=== PATIENT | female | born 1960 | race Caucasian/White ===

== ENCOUNTER 2024-02-08 21:16 | Inpatient (IN) | payer SELFPAY ==
[2024-02-08] MEDS ORDERED: Lorazepam 1 MG TAB ONE (22:00)
[2024-02-08] MEDS ORDERED: Morphine 2 MG/ML VIAL ONE (22:14)
[2024-02-08] MEDS ORDERED: Ondansetron PF 4 MG/2 ML Vial ONE (22:14)
[2024-02-08 22:29] LABS: #Basophils 0.11 10x3/uL (0.0-0.2); %Basophils 0.6 % (0.0-1.0); %Eosinophils 0.8 % (0.0-10.0); %Lymphocytes 16.9 % (21.0-51.0); %Monocytes 5.8 % (0.0-10.0); %Neutrophils 75.4 % (42.0-75.0); Hematocrit 43.3 % (36.0-47.0); Hemoglobin 14.9 g/dL (12.0-16.0); Mean Corpuscular HGB CONC 34.4 g/dL (32.0-36.0); Mean Corpuscular Hemoglobin 32.8 pg (27.0-31.0); Mean Corpuscular Volume 95.4 fL (78.0-98.0); Mean Platelet Volume 10.8 fL (7.4-10.4); Platelet Count 299 10x3/uL (130-400); RBC Distribution Width 12.4 % (11.5-14.5); Red Blood Cell (RBC) Count 4.54 mill/uL (4.20-5.40)
[2024-02-08 22:46] LABS: ALT (SGPT) 17 U/L (8-55); AST (SGOT) 21 U/L (5-34); Albumin 4.2 g/dL (3.4-4.8); Alkaline Phosphatase 122 U/L (40-110); Anion Gap 14 mmol/L (10-20); BUN (Urea Nitrogen) 8 mg/dL (9.8-20.1); Bilirubin, Total 0.5 mg/dL (0.2-1.2); Calc. Creatinine Clearance 0 mL/min (70-130); Calcium 9.3 mg/dL (7.8-10.44); Carbon Dioxide 25 mmol/L (23-31); Chloride 104 mmol/L (98-107); Estimated GFR 93; Globulin 3.3 g/dL (2.4-3.5); Glucose 116 mg/dL (80-115); Potassium 3.8 mmol/L (3.5-5.1); Protein, Total 7.5 g/dL (5.8-8.1); Sodium 139 mmol/L (136-145)
[2024-02-08] MEDS ORDERED: Bacitracin Zinc Ointment 30 gm TUBE ONE (22:48)
[2024-02-08] MEDS ORDERED: Bupivacaine PF 0.5% 30 ML VIAL ONE (22:49)
[2024-02-08] MEDS ORDERED: HYDROcodone/Acetaminophen 10/325 mg Tablet PO PRN (23:51)
[2024-02-08] MEDS ORDERED: Milk Of Magnesia 30 ML UDCUP PO PRN (23:51)
[2024-02-08] MEDS ORDERED: Ondansetron PF 4 MG/2 ML Vial SLOW IVP PRN (23:51)
[2024-02-08] MEDS ORDERED: Promethazine HCl 25 MG/ML VIAL IM PRN (23:51)
[2024-02-08] MEDS ORDERED: fentaNYL 50 mcg/mL 1 mL Vial SLOW IVP PRN (23:51)
[2024-02-08] MEDS ORDERED: Acetaminophen 325 MG TAB PO PRN (23:51)
[2024-02-08] MEDS ORDERED: traMADol HCl 50 MG TAB PO PRN (23:51)
[2024-02-09 00:34] LABS: Anion Gap 14 mmol/L (10-20); BUN (Urea Nitrogen) 6 mg/dL (9.8-20.1); Calc. Creatinine Clearance 0 mL/min (70-130); Calcium 8.6 mg/dL (7.8-10.44); Carbon Dioxide 19 mmol/L (23-31); Chloride 107 mmol/L (98-107); Estimated GFR 98; Glucose 99 mg/dL (80-115); Potassium 4.1 mmol/L (3.5-5.1); Sodium 136 mmol/L (136-145)
[2024-02-09] MEDS ORDERED: fentaNYL PF 100 MCG/2 ML SYRINGE ONE ×2 (01:03→03:14)
[2024-02-09] MEDS ORDERED: PROPOFOL 20 ML ONE (01:03)
[2024-02-09] MEDS ORDERED: Lidocaine 1% PF 5 ML VIAL ONE (01:03)
[2024-02-09] MEDS ORDERED: Midazolam HCl 2 mg/2 ml Vial ONE (01:03)
[2024-02-09] MEDS ORDERED: Ondansetron PF 4 MG/2 ML Vial ONE (01:03)
[2024-02-09] MEDS ORDERED: PHENYLEPHRINE-NS 100 MCG/ML 10 ML SYRINGE ONE (01:48)
[2024-02-09] MEDS ORDERED: Meperidine HCl/PF 25 MG (1 mL) VIAL IM PRN (03:24)
[2024-02-09 04:15] VITALS: BMI 25.4
[2024-02-09] MEDS: TETANUS, DIPHTHERIA TOX,ADULT (TDVAX) 0.5 ML VIAL IM ONE (04:16)
[2024-02-09] MEDS: Ketorolac Tromethamine 30 MG (1 mL) VIAL IVP SCH (05:34)
[2024-02-09] MEDS: cefTRIAXone\\ROCEPHIN 2 GM in Sodium Chloride 0.9% 100 ML IVPB SCH ×2 (05:40→06:28)
[2024-02-09] MEDS: HYDROcodone/Acetaminophen 5/325 mg Tablet PO PRN (05:45)
[2024-02-09] MEDS: Vancomycin (BATCH) 1.25 GM in Premix 1 BAG IVPB SCH (08:34)
[2024-02-09] MEDS: Aspirin 81 mg Enteric Coated Tablet PO SCH (08:34)
[2024-02-09] MEDS: Lorazepam 2 MG/ML VIAL SLOW IVP SCH (08:38)
[2024-02-09] MEDS ORDERED: VANCOMYCIN 1.25 GM/250 ML BAG IVPB SCH (09:00)
[2024-02-09] MEDS ORDERED: TETANUS AND DIPHTHERIA TOX/PF 0.5 ML DISP.SYRIN IM SCH (09:00)
[2024-02-09] MEDS: Nicotine 21 MG PATCH TD SCH (13:58)
[2024-02-09] MEDS ORDERED: Nicotine 21 MG PATCH TD SCH (21:00)
[2024-02-10 06:22] LABS: Vancomycin, Random 15.9 ug/mL (See Comment)
[2024-02-10] MEDS: Morphine 4 MG/ML VIAL SLOW IVP PRN (06:30)
[2024-02-10 07:42] LABS: %Eosinophils 4.7 % (0.0-10.0); %Monocytes 9.8 % (0.0-10.0); Hematocrit 36.9 % (36.0-47.0); Hemoglobin 11.9 g/dL (12.0-16.0); Mean Corpuscular HGB CONC 32.2 g/dL (32.0-36.0); Mean Corpuscular Hemoglobin 32.3 pg (27.0-31.0); Mean Corpuscular Volume 100.3 fL (78.0-98.0); Mean Platelet Volume 11.7 fL (7.4-10.4); Platelet Count 198 10x3/uL (130-400); RBC Distribution Width 12.7 % (11.5-14.5); Red Blood Cell (RBC) Count 3.68 mill/uL (4.20-5.40)
[2024-02-10] MEDS: FLU (Fluarix Triv) TS24-25(6MOS UP)/PF 45 MCG/0.5 ML Syringe IM ONE (08:53)
[2024-02-11] MEDS ORDERED: PROPOFOL 20 ML ONE (06:51)
[2024-02-11] MEDS ORDERED: Ondansetron PF 4 MG/2 ML Vial ONE (06:51)
[2024-02-11] MEDS ORDERED: fentaNYL 50 mcg/mL 1 mL Vial ONE ×2 (06:51→06:55)
[2024-02-11] MEDS ORDERED: Glycopyrrolate 0.2 MG/ML 5 ML SYRINGE ONE (06:51)
[2024-02-11] MEDS ORDERED: PHENYLEPHRINE-NS 100 MCG/ML 10 ML SYRINGE ONE (06:51)
[2024-02-11] MEDS ORDERED: Dexamethasone 20 MG/5 ML VIAL ONE (06:51)
[2024-02-11] MEDS ORDERED: Lidocaine 1% PF 5 ML VIAL ONE (06:51)
[2024-02-11] MEDS ORDERED: Midazolam HCl 2 mg/2 ml Vial ONE ×2 (06:51→06:55)
[2024-02-11] MEDS ORDERED: Ropivacaine 0.5% HCl/PF (150 MG/30 ML VIAL) ONE (06:55)
[2024-02-11] MEDS ORDERED: ePHEDrine Sulfate 50 MG/10 ML VIAL ONE (08:02)
[2024-02-11] MEDS ORDERED: Bacitracin Zinc Ointment 30 gm TUBE ONE (08:32)
[2024-02-11 11:39] VITALS: BP 103/68; TEMP 97.1
== END 2024-02-11 16:17 | disposition home or self-care (01) | DRG 514 ==
LOC: ERS 21:16 → SDC 02-09 01:50 → SURG A 02-09 01:51
PROVIDERS: ADMIT Orthopaedic Surgery Hand Surgery; ATTEND Orthopaedic Surgery Hand Surgery
PROC: 0RBR0ZZ Excision of Left Carpal Joint, Open Approach (ICD-10-PCS; principal; 2024-02-09)
PROC: 0RBT0ZZ Excision of Left Carpometacarpal Joint, Open Approach (ICD-10-PCS; 2024-02-09)
PROC: 3E033XZ Introduction of Vasopressor into Peripheral Vein, Percutaneous Approach (ICD-10-PCS; 2024-02-09)
PROC: 0RBT0ZZ Excision of Left Carpometacarpal Joint, Open Approach (ICD-10-PCS; 2024-02-11)
PROC: 0PSQ04Z Reposition Left Metacarpal with Internal Fixation Device, Open Approach (ICD-10-PCS; 2024-02-11)
DX: S62.317B Displaced fracture of base of fifth metacarpal bone, left hand, initial encounter for open fracture (principal); S51.852A Open bite of left forearm, initial encounter; S61.052A Open bite of left thumb without damage to nail, initial encounter; F17.210 Nicotine dependence, cigarettes, uncomplicated; Z88.0 Allergy status to penicillin; Z88.8 Allergy status to other drugs, medicaments and biological substances; W54.0XXA Bitten by dog, initial encounter
CPT/HCPCS: 36415; 80053; 80202; 82565; 85025; 86141; 93005; 96374; 96375; A6223; C1894; J0665; J0696; J1100; J1885; J2060; J2250; J2272; J2405; J2704; J2795; J3010; J3370

== ENCOUNTER 2025-01-25 19:33 | Inpatient (IN) | payer OTHER ==
[2025-01-25 21:31] VITALS: BMI 24.9
[2025-01-25] MEDS ORDERED: Ondansetron PF 4 MG/2 ML Vial IVP PRN (22:23)
[2025-01-25] MEDS ORDERED: Ketorolac Tromethamine 30 MG (1 mL) VIAL IVP PRN (22:23)
[2025-01-25] MEDS ORDERED: Albuterol 200 PUFF (6.7GM INHALER) INH PRN (22:27)
[2025-01-25 23:03] LABS: Hematocrit 45.8 % (36.0-47.0); Hemoglobin 15.0 g/dL (12.0-16.0); Platelet Count 291 10x3/uL (130-400)
[2025-01-25] MEDS: Acetaminophen 325 MG TAB PO PRN (23:42)
[2025-01-25] MEDS: Heparin 10,000 UNITS/ 10 ML VIAL SLOW IVP SCH (23:44)
[2025-01-26 05:21] LABS: #Basophils 0.12 10x3/uL (0.0-0.2); #Eosinophils 0.66 10x3/uL (0.0-0.7); #Monocytes 0.93 10x3/uL (0.11-0.59); #Neutrophils 8.41 10x3/uL (1.40-6.50); %Basophils 0.8 % (0.0-1.0); %Eosinophils 4.6 % (0.0-10.0); %Lymphocytes 28.3 % (21.0-51.0); %Monocytes 6.5 % (0.0-10.0); %Neutrophils 58.6 % (42.0-75.0); Hematocrit 44.2 % (36.0-47.0); Hemoglobin 14.7 g/dL (12.0-16.0); Mean Corpuscular Hemoglobin 31.1 pg (27.0-31.0); Mean Corpuscular Volume 93.4 fL (78.0-98.0); Platelet Count 268 10x3/uL (130-400); Red Blood Cell (RBC) Count 4.73 mill/uL (4.20-5.40); White Blood Cell (WBC) Count 14.36 10x3/uL (4.8-10.8)
[2025-01-26 05:34] LABS: Anion Gap 13 mmol/L (10-20); BUN (Urea Nitrogen) 7 mg/dL (9.8-20.1); Calc. Creatinine Clearance 115 mL/min (70-130); Calcium 9.2 mg/dL (7.8-10.44); Carbon Dioxide 26 mmol/L (23-31); Chloride 102 mmol/L (98-107); Glucose 99 mg/dL (80-115); Potassium 3.7 mmol/L (3.5-5.1); Sodium 137 mmol/L (136-145)
[2025-01-26 06:51] LABS: PTT 218.7 sec (22.9-36.1)
[2025-01-26] MEDS: Famotidine 20 MG TAB PO SCH (09:45)
[2025-01-26] MEDS: guaiFENesin/DM ER PO SCH (09:45)
[2025-01-26] MEDS: Ketorolac Tromethamine 30 MG (1 mL) VIAL IVP SCH (09:51)
[2025-01-26] MEDS: Apixaban 5 MG TAB PO SCH ×2 (12:02→20:30)
[2025-01-27] MEDS: Ketorolac Tromethamine 30 MG (1 mL) VIAL IVP SCH (10:53)
[2025-01-27] MEDS: Loratadine/Pseudoephedrine 10/240 mg Tablet PO SCH (10:54)
[2025-01-27 11:23] LABS: #Basophils 0.07 10x3/uL (0.0-0.2); #Eosinophils 0.53 10x3/uL (0.0-0.7); #Monocytes 0.79 10x3/uL (0.11-0.59); #Neutrophils 4.96 10x3/uL (1.40-6.50); %Basophils 0.8 % (0.0-1.0); %Eosinophils 5.9 % (0.0-10.0); %Lymphocytes 28.4 % (21.0-51.0); %Monocytes 8.7 % (0.0-10.0); %Neutrophils 54.9 % (42.0-75.0); Hematocrit 36.5 % (36.0-47.0); Hemoglobin 12.1 g/dL (12.0-16.0); Mean Corpuscular Hemoglobin 31.6 pg (27.0-31.0); Mean Corpuscular Volume 95.3 fL (78.0-98.0); Platelet Count 214 10x3/uL (130-400); Red Blood Cell (RBC) Count 3.83 mill/uL (4.20-5.40); White Blood Cell (WBC) Count 9.04 10x3/uL (4.8-10.8)
[2025-01-27 11:36] LABS: Anion Gap 12 mmol/L (10-20); BUN (Urea Nitrogen) 11 mg/dL (9.8-20.1); Calc. Creatinine Clearance 117 mL/min (70-130); Calcium 8.6 mg/dL (7.8-10.44); Carbon Dioxide 23 mmol/L (23-31); Chloride 110 mmol/L (98-107); Glucose 91 mg/dL (80-115); Potassium 3.9 mmol/L (3.5-5.1); Sodium 141 mmol/L (136-145)
[2025-01-28 06:14] LABS: #Basophils 0.08 10x3/uL (0.0-0.2); #Eosinophils 0.52 10x3/uL (0.0-0.7); #Monocytes 0.69 10x3/uL (0.11-0.59); #Neutrophils 7.43 10x3/uL (1.40-6.50); %Basophils 0.7 % (0.0-1.0); %Eosinophils 4.7 % (0.0-10.0); %Lymphocytes 20.4 % (21.0-51.0); %Monocytes 6.2 % (0.0-10.0); %Neutrophils 67.3 % (42.0-75.0); Hematocrit 36.2 % (36.0-47.0); Hemoglobin 11.5 g/dL (12.0-16.0); Mean Corpuscular Hemoglobin 30.8 pg (27.0-31.0); Mean Corpuscular Volume 97.1 fL (78.0-98.0); Platelet Count 212 10x3/uL (130-400); Red Blood Cell (RBC) Count 3.73 mill/uL (4.20-5.40); White Blood Cell (WBC) Count 11.05 10x3/uL (4.8-10.8)
[2025-01-28 06:35] LABS: Anion Gap 12 mmol/L (10-20); BUN (Urea Nitrogen) 6 mg/dL (9.8-20.1); Calc. Creatinine Clearance 113 mL/min (70-130); Calcium 8.6 mg/dL (7.8-10.44); Carbon Dioxide 22 mmol/L (23-31); Chloride 110 mmol/L (98-107); Glucose 117 mg/dL (80-115); Potassium 3.5 mmol/L (3.5-5.1); Sodium 140 mmol/L (136-145)
[2025-01-28 08:26] VITALS: TEMP 98.2
[2025-01-28 11:34] VITALS: BP 118/83
== END 2025-01-28 15:20 | disposition home or self-care (01) | DRG 175 ==
LOC: T4-B 20:57
PROVIDERS: ADMIT Family Medicine; ATTEND Internal Medicine
DX: I26.99 Other pulmonary embolism without acute cor pulmonale (principal); J96.01 Acute respiratory failure with hypoxia; I50.32 Chronic diastolic (congestive) heart failure; Z88.5 Allergy status to narcotic agent; Z88.0 Allergy status to penicillin; Z88.8 Allergy status to other drugs, medicaments and biological substances; Z91.040 Latex allergy status; F41.9 Anxiety disorder, unspecified; F32.A Depression, unspecified; Z98.890 Other specified postprocedural states; F12.90 Cannabis use, unspecified, uncomplicated; R91.1 Solitary pulmonary nodule; Z72.0 Tobacco use; I95.9 Hypotension, unspecified
CPT/HCPCS: 36415; 80048; 84145; 85025; 85730; 93306; 93970; 94640; J1644; J1885; J7030